=== PATIENT | male | born 1970 | race Caucasian/White ===

== ENCOUNTER 2016-04-03 12:56 | Emergency (ER) | payer MEDICARE, OTHER ==
[~2016-04-03] VITALS: Ht 182.9 cm; Wt 100.0 kg
[~2016-04-03 12:56] MED LIST: ATENOLOL; BENADRYL; CARB15DR48 BOTH EARS; LOPE2CAP PO; OFLO5DRO7 BOTH EARS; ONDA4TAB35 PO; [UNRECOGNIZED DRUG - REMARK]; [UNRECOGNIZED DRUG - REMARK]
[2016-04-03 13:06] VITALS: Ht 182.9 cm; Wt 100.0 kg
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
[2016-04-03] MEDS ORDERED: DIPHTH/TET/ACEL PERTUSS (ADULT) 0.5 ML VIAL IM* ONE (15:30)
== END 2016-04-03 15:58 | disposition home or self-care (01) ==
LOC: FTE 12:56
DX: S01.112A Laceration without foreign body of left eyelid and periocular area, initial encounter (principal); Y04.2XXA Assault by strike against or bumped into by another person, initial encounter; Z23 Encounter for immunization
CPT/HCPCS: 90471; 90715

== ENCOUNTER 2016-04-05 13:47 | Emergency (ER) | payer MEDICARE, OTHER ==
[~2016-04-05] VITALS: Wt 100.0 kg
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
[2016-04-05 16:24] VITALS: BP 123/83; PULSE 82; RESP 16; TEMP 98.6
== END 2016-04-05 16:25 | disposition home or self-care (01) ==
LOC: FTE 13:47
DX: Z48.01 Encounter for change or removal of surgical wound dressing (principal)
CPT/HCPCS: 99282

== ENCOUNTER 2016-04-10 13:52 | Emergency (ER) | END 2016-04-10 18:54 | disposition home or self-care (01) | DX: Z48.02 Encounter for removal of sutures (principal) ==

== ENCOUNTER 2016-08-18 14:47 | Emergency (ER) | payer MEDICARE, OTHER ==
[~2016-08-18] VITALS: Ht 182.9 cm; Wt 99.0 kg
[2016-08-18 14:49] VITALS: Ht 182.9 cm; Wt 99.0 kg
--- NOTE | 2016-08-18 14:53 | EN ---
Date/Time of Note Date/Time of Note DATE: 08/18/16 TIME: 14:52 ER Progress Note Patient is a 46-year-old male who presents the ED for concerns of bilateral cerumen impaction. Patient states that every 3-4 years he has come into the ED to have his ears cleaned out. Patient denies any fevers or chills. Patient denies any foreign body. PE: ENT: Bilateral cerumen noted. Patient will be seen in ED 2, for further workup. Patient will be seen based on soonest room availability. VU CRANE PA-C Aug 18, 2016 14:53
--- NOTE | 2016-08-18 15:51 | ERD ---
ER Documentation Chief Complaint Date/Time DATE: 08/18/16 TIME: 15:47 Chief Complaint R EAR DISCOMFORT HPI 46-year-old male presents the emergency department for cerumen impaction. Patient states every 6 months or so he has ear lavage for cerumen impaction. Patient states he has muffled hearing to right ear otherwise no other symptoms. Denies ear pain, otorrhea, fever or chills. No sore throat, difficult to swallowing, shortness of breath or difficulty breathing. No chest pain or cough. ROS All systems reviewed and are negative except as per history of present illness. Medications Home Meds Active Scripts Carbamide Peroxide* (Debrox*) 6.5% - 15 Ml Drops, 10 DROP BOTH EARS BID, #1 BOTTLE Prov:KEISHA GORMAN PA-C 10/16/15 Ofloxacin* (Floxin* Otic) 0.3% -10 Ml Soln, 10 DROP BOTH EARS BID for 10 Days, BOTTLE Prov:LORRIE MUÑOZ NP 08/09/15 Loperamide Hcl* (Imodium*) 2 Mg Capsule, 2 MG PO .AFTER EA LOOSE BM Y for DIARRHEA, #10 TAB Prov:PHILLIP OLMOS PA-C 04/25/15 Ondansetron Hcl* (Zofran* ODT) 4 mg -ODT Tab.disper, 4 MG PO Q6 Y for NAUSEA AND /OR VOMITING, #20 TAB Prov:ESPERANZA SUH MD 02/25/15 Reported Medications [Antipsychotics] No Conflict Check 01/29/13 [Pt Forgot Meds] No Conflict Check 01/29/13 [Benadryl] No Conflict Check 01/29/13 [Atenolol] No Conflict Check, NEEDED 01/29/13 Allergies Allergies: Coded Allergies: No Known Allergy (Unverified , 04/25/15) PMhx/Soc History of Surgery: Yes (bilat eye implant sx, bilat cataract sx) Anesthesia Reaction: No Hx Neurological Disorder: No Hx Respiratory Disorders: No Hx Cardiac Disorders: Yes (TACHYCARDIA) Hx Psychiatric Problems: Yes (DEPRESION; SCHIZOPHRENIA) Hx Miscellaneous Medical Probl: No Hx Alcohol Use: No Hx Substance Use: No Hx Tobacco Use: No Physical Exam Vitals Vital Signs Date Time Temp Pulse Resp B/P Pulse Ox O2 Delivery O2 Flow Rate FiO2 08/18/16 14:49 98.9 98 18 133/87 97 Physical Exam Const: No acute distress, alert Head: Atraumatic Eyes: Normal Conjunctiva ENT: Normal External Ears, Nose and Mouth. Cerumen impaction to bilateral ears. No mastoid tenderness. No erythema. Neck: Full range of motion..~ No meningismus. Resp: Clear to auscultation bilaterally Cardio: Regular rate and rhythm, no murmurs Abd: Soft, non tender, non distended. Normal bowel sounds Skin: No petechiae or rashes Back: No midline or flank tenderness Ext: No cyanosis, or edema Neur: Awake and alert Psych: Normal Mood and Affect Procedures/MDM MDM: 46-year-old male presents emergency department for bilateral cerumen impaction. Requesting bilateral ear lavage. States he has had ear lavage done every 6 months or so. No fevers or chills. No earache or headache. States he has muffled hearing to right ear. Otherwise no other complaints. Bilateral ear lavage performed per full time staff interpreter. Patient eloped after ear lavage. Low suspicion for mastoiditis, otitis media, otitis externa, pneumonia, pleural effusion, pneumothorax or acute DC. Differential diagnosis includes but not limited to cerumen impaction, URI, influenza, otitis media, otitis externa, asthma exacerbation, croup, bronchitis, bronchiolitis and costochondritis. Patient is appropriate for outpatient management. Upon reassessment, patient is unable to be located in the ER and appears to have eloped. Departure Diagnosis: Primary Impression: Cerumen impaction Condition: Stable CELINA ORTIZ NP Aug 18, 2016 15:50 CELINA ORTIZ NP Aug 18, 2016 15:50
== END 2016-08-18 16:44 | disposition home or self-care (01) ==
LOC: FTE 14:47
DX: H61.23 Impacted cerumen, bilateral (principal)

== ENCOUNTER 2017-01-27 19:43 | Emergency (ER) | payer MEDICARE, OTHER ==
[~2017-01-27] VITALS: Ht 182.9 cm; Wt 100.0 kg
[~2017-01-27 19:43] MED LIST changes: -CARB15DR48 BOTH EARS; +CARB15DR50 BOTH EARS
[2017-01-27 19:47] VITALS: Ht 182.9 cm; Wt 100.0 kg
[2017-01-27] MEDS ORDERED: morphine 4 MG/ML VIAL IM STA (21:06)
[2017-01-27] MEDS ORDERED: METOCLOPRAMIDE 10 MG INJ IM ONE (21:30)
--- NOTE | 2017-01-27 21:39 | RADRPT ---
PROCEDURE: Noncontrast CT Head. CLINICAL INDICATION: Headache. TECHNIQUE: Noncontrast CT of the head was obtained. The administered radiation dose was CTDI vol = 43 mGy, DLP = 720 mGy-cm. One or more of the following dose reduction techniques were used: automate d exposure control, adjustment of the mA and/or kV according to patient size and/or use of iterative reconstruction technique. DICOM images are available. COMPARISON: 02/01/2013 FINDINGS: The ventricles and sulci are within normal limits. There is no acute intracranial hemorrhage or ext ra-axial fluid collection. There is no mass effect. No midline shift is identified. There is no loss of lange-white differentiation to suggest acute infarction. The orbits are within normal limits. The paranasal sinuses and mastoid air cells are without fluid. No destructive osseous lesion is identified. IMPRESSION: No acute findings. RPTAT: HIKT .Karl Garnica MD, MD Date Time Electronically viewed and signed by .Karl Garnica MD, MD on 01/27/2017 21:39 .T/
[2017-01-27] MEDS ORDERED: KETOROLAC 30 MG INJ IM STA (21:41)
--- NOTE | 2017-01-27 21:45 | ERD ---
ER Documentation Chief Complaint Chief Complaint PASCUAL WITH FEVER AT HOME, BODY CHILLS, ACHING JOINTS & ST X 2 HPI Otherwise healthy 46-year-old male presenting with a chief complaint of headache. Patient has a history of headaches but states this 1 came on suddenly and is the worst headache of his life. Patient has taken Tylenol with minimal relief. Denies any change in vision or other rapidly progressive neurological deficits. Patient has no other complaints and describes no other associated manifestations. Nursing notes have been reviewed and are consistent with history given. ROS All systems reviewed and are negative except as per history of present illness. Medications Home Meds Active Scripts Carbamide Peroxide* (Debrox*) 6.5% - 15 Ml Drops, 10 DROP BOTH EARS BID, #1 BOTTLE Prov:KEISHA GORMAN PA-C 10/16/15 Ofloxacin* (Floxin* Otic) 0.3% -10 Ml Soln, 10 DROP BOTH EARS BID for 10 Days, BOTTLE Prov:LORRIE MUÑOZ NP 08/09/15 Loperamide Hcl* (Imodium*) 2 Mg Capsule, 2 MG PO .AFTER EA LOOSE BM Y for DIARRHEA, #10 TAB Prov:PHILLIP OLMOS PA-C 04/25/15 Ondansetron Hcl* (Zofran* ODT) 4 mg -ODT Tab.disper, 4 MG PO Q6 Y for NAUSEA AND /OR VOMITING, #20 TAB Prov:ESPERANZA SUH MD 02/25/15 Reported Medications [Antipsychotics] No Conflict Check 01/29/13 [Pt Forgot Meds] No Conflict Check 01/29/13 [Benadryl] No Conflict Check 01/29/13 [Atenolol] No Conflict Check, NEEDED 01/29/13 Allergies Allergies: Coded Allergies: No Known Allergy (Unverified , 04/25/15) PMhx/Soc History of Surgery: Yes (CATARACTS (CONGENITAL) AT 5 Y.O. & FACIAL IMPLANTS ( 25 Y.O)) Anesthesia Reaction: No Hx Neurological Disorder: No Hx Respiratory Disorders: No Hx Cardiac Disorders: Yes (TACHYCARDIA) Hx Psychiatric Problems: Yes (SCHIZOAFFECTIVE) Hx Miscellaneous Medical Probl: No Hx Alcohol Use: No Hx Substance Use: No Hx Tobacco Use: No Smoking Status: Never smoker Physical Exam Vitals Vital Signs Date Time Temp Pulse Resp B/P Pulse Ox O2 Delivery O2 Flow Rate FiO2 01/27/17 19:47 99.0 110 20 148/86 98 Physical Exam Const: Healthy-appearing. Well-nourished. Well-developed. No acute distress. Head: Normocephalic, Atraumatic. Eyes: Non-injected; No discharge or foreign body. Ophthalmoscope exam unremarkable. EOMI and VENKATESH bilaterally. No nystagmus. Neur: Awake, alert and oriented x3. Neurovascularly intact bilaterally. Psych: Normal Mood and Affect. Ears: Normal External Ears, EACs clear, TM normal bilaterally without erythema. Nose: Normal external nose; no discharge, septal deviation, or sinus tenderness. Oral: No oral edema visualized. Mucous membranes moist and pink. Neck: No cervical lymphadenopathy, masses or goiter palpated. Trachea midline. Full range of motion. Supple ~ No meningismus. Negative kernings and brudnizkis signs. Pulm: Good air movement in upper and lower respiratory tracts. No dyspnea, stridor, tripoding or drooling. Clear to auscultation bilaterally. Cardio: Regular rate and rhythm; No murmurs, gallops or rubs auscultated. No JVD grossly observed. Radial and posterior tibial pulses 2+ bilaterally. No cyanosis. Capillary refill less than 2 seconds. Abd: Soft, non tender, non distended. No guarding, masses. Normal bowel sounds. No McBurney's point tenderness. MS: Normal motor strength, normal tone with gross examination. Skin: No petechiae or rashes. No ulcer, induration, jaundice. Good turgor. Back: No midline, flank or CVA tenderness. Ext: No edema or palpable cord. Normal movement of all extremities grossly observed. Results 24 hrs Current Medications Medications (Trade) Dose Ordered Sig/Danielle Route PRN Reason Start Time Stop Time Status Last Admin Dose Admin Morphine Sulfate (morphine) 4 mg ONCE STAT IM 01/27/17 21:06 01/27/17 21:08 DC Metoclopramide HCl (Reglan) 10 mg ONCE ONCE IM 01/27/17 21:30 01/27/17 21:31 DC 01/27/17 21:35 Procedures/MDM Otherwise healthy 46-year-old male presenting with a chief complaint of headache. Has a history of migraines but states this is the worse and came on suddenly 3 hours ago. Described as sharp over the right frontal area. No changes in visions. CT scan was ordered stat stat read by the radiologist as unremarkable without acute findings. I have no suspicion for intracranial bleed. Most likely diagnosis is tension headache versus migraine without aura. Patient was given 30 mg Toradol IM and Reglan 20 mg IM in the emergency department with adequate relief of symptoms. I have spoke with the patient regarding their condition and future management. They have verbally responded that they understand their status and treatment plan. The patients vitals are stable, and their current condition is appropriate for discharge. The patient will be given discharge instructions with return precautions. Departure Diagnosis: Primary Impression: Headache Headache type: unspecified Headache chronicity pattern: unspecified pattern Intractability: not intractable Qualified Code: R51 - Nonintractable headache, unspecified chronicity pattern, unspecified headache type Condition: Stable Patient Instructions: Self-Care for Headaches Referrals: BENJI HUTTON (PCP) Additional Instructions: Follow up with your PCP within the next 1-3 days for a more thorough evaluation and a possible referral to a specialist. Return the the emergency department immediately if symptoms worsen or change. If you have any questions regarding medications, ask your pharmacist or us before you leave. If any adverse reactions occur while taking your medications, discontinue the treatment and return to the emergency department immediately. Take your medications as directed, and complete the entire course of treatment. JEREMY WYNN PA-C Jan 27, 2017 21:45
== END 2017-01-27 22:27 | disposition home or self-care (01) ==
LOC: FTE 19:43
DX: R51 Headache (principal)
CPT/HCPCS: 70450; J1885; J2765; 96372; J2270

== ENCOUNTER 2017-02-22 18:51 | Emergency (ER) | payer MEDICARE, OTHER ==
[~2017-02-22] VITALS: Ht 175.3 cm; Wt 101.0 kg
[2017-02-22 18:56] VITALS: Ht 175.3 cm; Wt 101.0 kg
[2017-02-22] MEDS ORDERED: FLUORESCEIN STRIP RIGHT EYE ONE (19:30)
[2017-02-22] MEDS ORDERED: TETRACAINE 0.5% 4 ML OPH RIGHT EYE ONE (19:30)
[2017-02-22] MEDS ORDERED: OPHTHALMIC IRRIG SOLUTION 120 ML RIGHT EYE ONE (20:30)
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
--- NOTE | 2017-02-22 21:05 | RADRPT ---
PROCEDURE: Ultrasound soft tissue CLINICAL INDICATION: Right eye blurry vision. TECHNIQUE: Ultrasound of the bilateral globes is performed utilizing lange scale imaging. COMPARISON: None. FINDINGS: There are punctate and linear echogenic foci in the bilateral vitrous bodies. A curvilinear echogeni c structure along the posterior right globe is consistent with a retinal detachment. IMPRESSION: 1. Right-sided retinal detachment. 2. Echogenic foci in the bilateral vitrous bodies, possibly representing vitreous hemorrhages or de bris. 3. Emergent referral to ophthalmology is recommended. RPTAT: HTAR .Bereket Gtz MD, MD Date Time Electronically viewed and signed by .Bereket Gtz MD, MD on 02/22/2017 21:04 .R/
[2017-02-22 23:33] VITALS: BP 168/137; PULSE 79; RESP 20; TEMP 98.3
== END 2017-02-22 23:46 | disposition short-term general hospital (02) ==
LOC: FTE 18:51
DX: H33.21 Serous retinal detachment, right eye (principal)
CPT/HCPCS: 76536

== ENCOUNTER 2017-02-28 20:16 | Emergency (ER) | payer MEDICARE, OTHER ==
[~2017-02-28] VITALS: Ht 177.8 cm; Wt 100.1 kg
[2017-02-28 20:26] VITALS: Ht 177.8 cm; Wt 100.1 kg
--- NOTE | 2017-03-01 00:24 | ERD ---
ER Documentation Chief Complaint Chief Complaint fever on and off x 2 days HPI 46-year-old male who presents emergency department for fever and sore throat that is on and off for 2 days. Denies headache, dizziness, blurred vision, pain in eye movement, neck pain, neck stiffness, faculty swallowing, loss of appetite, difficulty breathing when lying flat, shoulder pain, chest pain, back pain, abdominal pain, nausea, vomiting, constipation, diarrhea, urinary symptoms , loss of bowel bladder control, changes in bowel bladder habits, recent long travel, recent travel, recent exposure to any illness, recent antibiotic use in the last 3 months, chills, difficulty walking. Has past medical history of schizophrenia. Takes Zyprexa. ROS All systems reviewed and are negative except as per history of present illness. Medications Home Meds Active Scripts Acetaminophen* (Tylophen*) 500 Mg Capsule, 1 CAP PO Q6H Y for PAIN AND OR ELEVATED TEMP, #20 CAP Prov:KENIAILABANBETTY F 03/01/17 Ibuprofen* (Motrin*) 800 Mg Tab, 800 MG PO Q8 Y for PAIN AND OR ELEVATED TEMP, # 30 TAB Prov:KENIAILABETTY MASON 03/01/17 Amoxicillin/Potassium Clav (Amox-Clav 875-125 mg Tablet) 875-125 mg Tab, 1 TAB PO BID for 10 Days, #20 TAB Prov:BETTY CANNON F 03/01/17 Carbamide Peroxide* (Debrox*) 6.5% - 15 Ml Drops, 10 DROP BOTH EARS BID, #1 BOTTLE Prov:KEISHA GORMAN PA-C 10/16/15 Ofloxacin* (Floxin* Otic) 0.3% -10 Ml Soln, 10 DROP BOTH EARS BID for 10 Days, BOTTLE Prov:LORRIE MUÑOZ NP 08/09/15 Loperamide Hcl* (Imodium*) 2 Mg Capsule, 2 MG PO .AFTER EA LOOSE BM Y for DIARRHEA, #10 TAB Prov:PHILLIP OLMOS PA-C 04/25/15 Ondansetron Hcl* (Zofran* ODT) 4 mg -ODT Tab.disper, 4 MG PO Q6 Y for NAUSEA AND /OR VOMITING, #20 TAB Prov:ESPERANZA SUH MD 02/25/15 Reported Medications [Antipsychotics] No Conflict Check 01/29/13 [Pt Forgot Meds] No Conflict Check 01/29/13 [Benadryl] No Conflict Check 01/29/13 [Atenolol] No Conflict Check, NEEDED 01/29/13 Allergies Allergies: Coded Allergies: No Known Allergy (Unverified , 04/25/15) PMhx/Soc History of Surgery: Yes (CATARACTS (CONGENITAL) AT 5 Y.O. & FACIAL IMPLANTS ( 25 Y.O)) Anesthesia Reaction: No Hx Neurological Disorder: No Hx Respiratory Disorders: No Hx Cardiac Disorders: Yes (TACHYCARDIA) Hx Psychiatric Problems: Yes (SCHIZOAFFECTIVE) Hx Miscellaneous Medical Probl: No Hx Alcohol Use: No Hx Substance Use: No Hx Tobacco Use: No Physical Exam Vitals Vital Signs Date Time Temp Pulse Resp B/P Pulse Ox O2 Delivery O2 Flow Rate FiO2 02/28/17 20:26 101.7 108 20 151/89 98 Physical Exam Const: Well-appearing. Not in acute respiratory distress. Head: Atraumatic Eyes: Normal Conjunctiva ENT: Normal External Ears, Nose and Mouth. Throat: Uvula is midline nondisplaced. Tonsils are +2 bilaterally with redness and mild exudates to the right side. Tolerating secretions. Patent airway. Speaks full and clear sentences. Neck: Full range of motion..~ No meningismus. Resp: Clear to auscultation bilaterally Cardio: Regular rate and rhythm, no murmurs Abd: Soft, non tender, non distended. Normal bowel sounds Skin: No petechiae or rashes Back: No midline or flank tenderness Ext: No cyanosis, or edema Neur: Awake and alert Psych: Normal Mood and Affect Results 24 hrs Current Medications Medications (Trade) Dose Ordered Sig/Danielle Route PRN Reason Start Time Stop Time Status Last Admin Dose Admin Acetaminophen (Tylenol Tab) 650 mg ONCE ONCE PO 03/01/17 01:00 03/01/17 01:00 DC 03/01/17 00:42 Procedures/MDM Differential diagnosis: I have low suspicion for meningitis,peritonsillar abscess, severe or serious bacterial infection due to patient's appearance and vital signs. Patient agreed with my plan of care to prescribe him with Augmentin. Motrin. Tylenol. Stated that he will follow-up with his primary care physician in the next 3-4 days. Follow-up with PCP in the next 3-4 days. Come back to emergency department for any new symptoms or any worsening symptoms. All questions and concerns are answered. Patient verbalized understanding and agreed with the plan of care. Hemodynamically stable on discharge. Follow-up with PCP in the next 3-4 days. Come back to emergency department for any new symptoms or any worsening symptoms. All questions and concerns are answered. Patient verbalized understanding and agreed with the plan of care. Departure Diagnosis: Primary Impression: Fever Additional Impressions: Pharyngitis Exudative tonsillitis Condition: Stable Additional Instructions: Follow-up with PCP in the next 3-4 days. Come back to emergency department for any new symptoms or any worsening symptoms. All questions and concerns are answered. Patient verbalized understanding and agreed with the plan of care. BETTY CANNON Mar 01, 2017 00:24
[2017-03-01] MEDS ORDERED: IBUP800T25 PO (00:25)
[2017-03-01] MEDS ORDERED: ACET500C5 PO (00:25)
[2017-03-01] MEDS ORDERED: AMOX1TAB10 PO (00:25)
[2017-03-01] MEDS ORDERED: ACETAMINOPHEN 325 MG TAB PO ONE (01:00)
== END 2017-03-01 00:45 | disposition home or self-care (01) ==
LOC: FTE 20:16
DX: J03.90 Acute tonsillitis, unspecified (principal)
CPT/HCPCS: 99283

== ENCOUNTER 2017-04-01 22:26 | Emergency (ER) | END 2017-04-02 03:41 | disposition home or self-care (01) ==

== ENCOUNTER 2017-04-10 13:44 | Emergency (ER) | END 2017-04-10 17:44 | disposition home or self-care (01) ==

== ENCOUNTER 2018-06-16 17:05 | Emergency (ER) | payer MEDICARE, OTHER ==
[~2018-06-16] VITALS: Ht 182.9 cm; Wt 120.0 kg
[~2018-06-16 17:05] MED LIST changes: +ACET500C5 PO; +AMOX1TAB10 PO; +AZIT250T PO; +CLIN300C10 PO; +IBUP-1542 PO; +IBUP800T48 PO
[2018-06-16 17:14] VITALS: Ht 182.9 cm; Wt 120.0 kg
[2018-06-16] MEDS ORDERED: IBUP-1542 PO (20:46)
[2018-06-16] MEDS ORDERED: D-ME118S24 PO (20:46)
--- NOTE | 2018-06-16 20:48 | ERD ---
ER Documentation Chief Complaint Chief Complaint COUGH , SORE THROAT X 3 DAYS HPI 47-year-old male presents for cough and sore throat times 3 days. Denies any fevers. Cough noted to be dry. He has not tried any treatments at home. He denies past medical history. ROS All systems reviewed and are negative except as per history of present illness. Medications Home Meds Active Scripts D-Methorphan Hb/P-Epd HCl/Bpm (Crygcxzjia-Ootkkxgpbwx-Mr Syr) 118 Ml Syrup, 5 ML PO Q4H PRN for COUGH for 7 Days, #1 BOTTLE Prov:JEREMY LIZ 06/16/18 Ibuprofen* (Motrin*) 600 Mg Tab, 600 MG PO Q6H PRN for PAIN AND OR ELEVATED TEMP, #30 TAB Prov:LIZJEREMY 06/16/18 Azithromycin* (Zithromax*) 250 Mg Tablet, 250 MG PO .ZPACK DIRECTED, #6 TAB TAKE 500 MG (2 TABS) THE FIRST DAY THEN 250 MG (1 TAB) DAYS 2-5 Prov:HARVEY GAMBOA 04/10/17 Ibuprofen* (Motrin*) 600 Mg Tab, 600 MG PO Q6H PRN for PAIN AND OR ELEVATED TEMP, #30 TAB Prov:NETTE BRANCH NP 04/02/17 Clindamycin Hcl* (Clindamycin Hcl*) 300 Mg Capsule, 300 MG PO TID for 10 Days, CAP Prov:NETTE BRANCH NP 04/02/17 Acetaminophen* (Tylophen*) 500 Mg Capsule, 1 CAP PO Q6H PRN for PAIN AND OR ELEVATED TEMP, #20 CAP Prov:BETTY CANNON 03/01/17 Ibuprofen* (Motrin*) 800 Mg Tab, 800 MG PO Q8 PRN for PAIN AND OR ELEVATED TEMP, #30 TAB Prov:BETTY CANNON 03/01/17 Amoxicillin/Potassium Clav (Amox-Clav 875-125 mg Tablet) 875-125 mg Tab, 1 TAB PO BID for 10 Days, #20 TAB Prov:BETTY CANNON 03/01/17 Carbamide Peroxide* (Debrox*) 6.5% - 15 Ml Drops, 10 DROP BOTH EARS BID, #1 BOTTLE Prov:KEISHA GORMAN PA-C 10/16/15 Ofloxacin* (Floxin* Otic) 0.3% -10 Ml Soln, 10 DROP BOTH EARS BID for 10 Days, BOTTLE Prov:LORRIE MUÑOZ Pranav RENTERIA 08/09/15 Loperamide Hcl* (Imodium*) 2 Mg Capsule, 2 MG PO .AFTER EA LOOSE BM PRN for DIARRHEA, #10 TAB Prov:PHILLIP OLMOS PA-C 04/25/15 Ondansetron Hcl* (Zofran* ODT) 4 mg -ODT Tab.disper, 4 MG PO Q6 PRN for NAUSEA AND/OR VOMITING, #20 TAB Prov:ESPERANZA SUH MD 02/25/15 Reported Medications [Antipsychotics] No Conflict Check 01/29/13 [Pt Forgot Meds] No Conflict Check 01/29/13 [Benadryl] No Conflict Check 01/29/13 [Atenolol] No Conflict Check, NEEDED 01/29/13 Allergies Allergies: Coded Allergies: No Known Allergy (Unverified , 04/10/17) PMhx/Soc Medical and Surgical Hx: pt denies Medical Hx, pt denies Surgical Hx History of Surgery: Yes (eye surgeries) Anesthesia Reaction: No Hx Neurological Disorder: No Hx Respiratory Disorders: No Hx Cardiac Disorders: Yes (TACHYCARDIA) Hx Psychiatric Problems: Yes (SCHIZOAFFECTIVE) Hx Miscellaneous Medical Probl: No Hx Alcohol Use: No Hx Substance Use: No Hx Tobacco Use: No Smoking Status: Never smoker Physical Exam Vitals Vital Signs Date Temp Pulse Resp B/P (MAP) Pulse Ox O2 O2 Flow FiO2 Time Delivery Rate 06/16/18 98.3 92 18 130/88 98 Room Air 20:52 (102) 06/16/18 97.5 96 18 135/93 96 17:14 (107) Physical Exam Const: No acute distress Head: Atraumatic Eyes: Normal Conjunctiva ENT: Normal External Ears, bilateral tympanic membrane intact without erythema or bulging noted, nose and Mouth examination normal, there is mild bilateral tonsillar swelling noted without exudate Neck: Full range of motion. No meningismus. Resp: Clear to auscultation bilaterally, no wheezing, rales, rhonchi Cardio: Regular rate and rhythm, no murmurs Skin: No petechiae or rashes Ext: No cyanosis, or edema Neur: Awake and alert Psych: Normal Mood and Affect Procedures/MDM Medical Decision Making: Differential diagnosis includes but not limited to upper respiratory infection, pneumonia, sepsis, meningitis, influenza. Patient appeared well on physical examination, nontoxic appearing. Lungs were clear to auscultation bilaterally. There is low suspicion for pneumonia, sepsis, meningitis. Rapid strep test negative Patient likely has an upper respiratory infection, likely viral. Therefore an tibiotics not indicated. Discussed symptomatic treatment with patient who agrees with plan. Patient given prescription for supportive medication(s). Patient advised to follow up with PCP in 1-2 days. Patient advised to return to ED for new or worsening symptoms. Patient stable on discharge from the ED. Disclaimer: Inadvertent spelling and grammatical errors are likely due to E HR/dictation software use and do not reflect on the overall quality of patient care. Also, please note that the electronic time recorded on this note does not necessarily reflect the actual time of the patient encounter. Departure Diagnosis: Primary Impression: URI (upper respiratory infection) URI type: unspecified URI Qualified Codes: J06.9 - Acute upper respiratory infection, unspecified Condition: Fair Patient Instructions: Preventing Common Respiratory Infections Referrals: [facility] YOU HAVE RECEIVED A MEDICAL SCREENING EXAM AND THE RESULTS INDICATE THAT YOU DO NOT HAVE A CONDITION THAT REQUIRES URGENT TREATMENT IN THE EMERGENCY DEPARTMENT. FURTHER EVALUATION AND TREATMENT OF YOUR CONDITION CAN WAIT UNTIL YOU ARE SEEN IN YOUR DOCTORS OFFICE WITHIN THE NEXT 1-2 DAYS. IT IS YOUR RESPONSIBILITY TO MAKE AN APPOINTMENT FOR FOLOW-UP CARE. IF YOU HAVE A PRIMARY DOCTOR --you should call your primary doctor and schedule an appointment IF YOU DO NOT HAVE A PRIMARY DOCTOR YOU CAN CALL OUR PHYSICIAN REFERRAL HOTLINE AT IF YOU CAN NOT AFFORD TO SEE A PHYSICIAN YOU CAN CHOSE FROM THE FOLLOWING [facility] [address] [facility] [address] [facility] [address] [facility] [address] [facility]. [facility] [address] [facility]. [facility]. [address] Additional Instructions: Call your primary care doctor TOMORROW for an appointment during the next 1-2 days.See the doctor sooner or return here if your condition worsens before your appointment time. JEREMY LIZ DO Jun 16, 2018 20:47
[2018-06-16 20:52] VITALS: BP 130/88; PULSE 92; RESP 18
== END 2018-06-16 21:19 | disposition home or self-care (01) ==
LOC: FTE 17:05
DX: J06.9 Acute upper respiratory infection, unspecified (principal)
CPT/HCPCS: 87880; 99283